=== PATIENT | female | born 1990 ===

== ENCOUNTER 2020-08-15 11:05 | Day surgery (SDC) | payer OTHER ==
[~2020-08-15 11:05] MED LIST: SYNTHROID100 MCG
[2020-08-15] MEDS ORDERED: TYLENOL ARTHRI650 MG PO (16:12)
[2020-08-15] MEDS ORDERED: ULTRAM50 MG PO (16:12)
[2020-08-15] MEDS ORDERED: MIRALAX17 GM PO (16:12)
== END 2020-08-15 18:00 | disposition home or self-care (01) ==
LOC: CIR.AMB 11:05
PROVIDERS: ATTEND Surgery
DX: K42.0 Umbilical hernia with obstruction, without gangrene (principal); Z30.2 Encounter for sterilization; Z20.828 Contact with and (suspected) exposure to other viral communicable diseases